=== PATIENT | male | born 1965 | race African-American/Black ===

== ENCOUNTER 2020-02-05 16:53 | Emergency (ER) | payer OTHER ==
[~2020-02-05] VITALS: Ht 182.9 cm; Wt 113.4 kg
[2020-02-05] MEDS ORDERED: ROSUVASTATIN CA20 MG PO (17:30)
[2020-02-05] MEDS ORDERED: METOPROLOL TAR100 MG PO (17:30)
[2020-02-05] MEDS ORDERED: NIFEDIPINE ER60 M1 PO (17:30)
[2020-02-05] MEDS ORDERED: DEMADEX20 MG PO (17:30)
[2020-02-05 18:27] VITALS: BP 192/117
== END 2020-02-05 18:35 | disposition home or self-care (01) ==
LOC: ER 16:53
DX: I10 Essential (primary) hypertension (principal); E78.00 Pure hypercholesterolemia, unspecified; Z76.0 Encounter for issue of repeat prescription